=== PATIENT | female | born 1970 | race Caucasian/White ===

== ENCOUNTER → 2017-12-03 | Outpatient (CLI) | payer BC, OTHER ==
[~2017-12-03] MED LIST: ADV500/50 INH; GUALA600 PO; LOR5 PO; PRE20 PO
--- NOTE | 2017-12-04 09:59 | RADIOLOGY IMAGING REPORT ---
FACILITY: [facility] [place] PATIENT NAME: CAREN RICHARDSON : [id number] MR: [id number] V: [id number] EXAM DATE: [id number] ORDERING PHYSICIAN: EDISON PEREIRA TECHNOLOGIST: Beryl Reed PROCEDURE:BILATERAL DIGITAL SCREENING MAMMOGRAM WITH CAD ASSISTED INTERPRETATION & 3D TOMOSYNTHESIS COMPARISON:Prior mammograms 02/17/14. INDICATIONS:screening FINDINGS: Moderately dense fibroglandular tissue is seen throughout the breasts. The parenchymal pattern has remained stable allowing for difference in mammographic technique & patient positioning. There is no evidence of malignant appearing mass, malignant appearing calcifications or other secondary sign of malignancy in either breast. DIAGNOSTIC CATEGORY 1--NEGATIVE. RECOMMENDATIONS: ROUTINE MAMMOGRAM AND CLINICAL EVALUATION. IMPRESSION: BIRADS 1: Negative No significant abnormality is seen. Dictated by: Domenica Tiwari M.D. on 12/03/2017 at 16:45 Transcribed by: THADDEUS on 12/04/2017 at 7:52 Approved by: Domenica Tiwari M.D. on 12/04/2017 at 9:58 [facility]
== END ==
LOC: MAMO 00:54
PROVIDERS: ATTEND Nurse Practitioner Family
DX: Z12.31 Encounter for screening mammogram for malignant neoplasm of breast (principal)
CPT/HCPCS: 77063; 77067